=== PATIENT | male | born 1945 | race Caucasian/White ===

== ENCOUNTER 2019-06-10 12:54 | Outpatient (CLI) | payer MEDICARE, BC, SELFPAY ==
--- NOTE | 2019-06-10 06:00 | DI.RAD_ITS ---
SYMPTOMS/DIAGNOSIS: CERVICAL SPONDYLOSIS PAIN CLINIC CERVICAL SPINE: Fluoroscopy Time: 38.5 sec C-arm fluoroscopy was utilized by Dr. Aguirre. Please see Dr. Aguirre's procedure note. Hard copies show needle placement and injections overlying the facet joints at what appear to be the C3 and C4 levels, reportedly on the right.
[2019-06-10 13:11] VITALS: BP 116/71; PULSE 48; RESP 16; TEMP 37.1; O2SAT 96
[2019-06-10 13:54] VITALS: BP 125/61; PULSE 59; RESP 21; O2SAT 100
--- NOTE | 2019-06-10 13:57 | PDOC.PAIN_ITS ---
Pain Clinic Procedure Note Current Active Problems Problem Status Onset Cervical spondylosis without myelopathy CERVICAL MEDIAL BRANCH BLOCKS LEO OLSON has been referred to the [facility] for cervical medial branch blocks. COMMENTS: I reviewed Ms. Morales's recent evaluation and his recent images. Patient was interviewed and the medical record reviewed. There were no medical, pharmacologic, radiographic or other structural contraindications to attempting fluoroscopically guided local anesthetic cervical medial branch blocks. Risks and expected side effects as well as potential benefit of the procedure were reviewed and voiced concerns addressed. The printed consent form was signed and witnessed. Standard time-out procedure was performed. Patient was placed in the Left lateral decubitus position on the fluoroscopy table and automated blood pressure cuff and pulse oximeter applied. The skin entry points for approaching the anatomic target points of the segmental medial branches of Right C2-C5 were identified with fluoroscopy and marked. Following thorough Chlorhexadine preparation of the skin and draping and 1% lidocaine infiltration of the skin entry points and subcutaneous tissues, a 25 gauge spinal needle was placed under fluoroscopic guidance down on to the target point for each respective segmental medial branch. Position was confirmed in A/P and leteral views with 0.25ml of omnipaque 240 injected at each level. This revealed appropriate spread and no vascular uptake. At each point 0.3ml 0.5% bupivicaine was injected. Vital signs were stable throughout the procedure and were as recorded in the docflowsheet by the nursing staff. Follow up plans and appointments were discussed and patient was instructed to keep careful note of how the usual pain was modified by these injections. Spe cifically, the patient was asked to keep a pain diary for the next 24 hours using a numeric pain scale of 0-10 and report these results at the follow-up visit. Post procedure instruction was given as documented in the nursing documentation and having met discharge criteria, and was discharged from the [facility]. Based on the medial branches blocked today, if they patient has adequate relief and we are able to proceed to radiofrequency ablation, the treatment should result in the denervation of the right C2-C3, C3-C4 and C4-C5 FACET JOINTS. We would expect to denervate a total of 3 facets during the radiofrequency ablation. COMMENTS: He will call back with his 1-4 hour post-procedure pain levels. CC: Xu Lehman
[2019-06-10] MEDS: Omnipaque 240 MG/ML 50 ML BTL IJ (14:04)
[2019-06-10] MEDS: Bupivacaine 0.5% Pres-Free 10 ML VIAL IJ (14:04)
== END 2019-06-10 13:14 ==
PROVIDERS: PCP Internal Medicine; Visit Provider Preventive Medicine Occupational Medicine
DX: M47.812 Spondylosis without myelopathy or radiculopathy, cervical region (principal)
CPT/HCPCS: 64490; 64491; 64492; 72040; Q9967